=== PATIENT | male | born 1945 | race Caucasian/White ===

== ENCOUNTER 2023-07-06 09:01 | Outpatient (CLI) | payer MEDICARE, OTHER ==
[2023-07-06] MEDS ORDERED: Magnevist 469MG/ML 20 ML VIAL ONE (14:03)
== END 2023-07-06 09:02 | disposition home or self-care (01) ==
LOC: EEVIPCON 09:01 → BICMRI 09:01
PROVIDERS: ATTEND Internal Medicine Gastroenterology
DX: Q45.3 Other congenital malformations of pancreas and pancreatic duct (principal); M51.9 Unspecified thoracic, thoracolumbar and lumbosacral intervertebral disc disorder; C25.2 Malignant neoplasm of tail of pancreas; K86.89 Other specified diseases of pancreas; D13.9 Benign neoplasm of ill-defined sites within the digestive system; D13.6 Benign neoplasm of pancreas
CPT/HCPCS: 36415; 74183; 80053; 82565; 82728; 85025; 86301; A9579

== ENCOUNTER 2024-08-24 11:08 | Outpatient (CLI) | payer MEDICARE, OTHER | END 2024-08-24 11:09 | disposition home or self-care (01) | LOC: BICCT 11:08 | PROVIDERS: ATTEND Thoracic Surgery (Cardiothoracic Vascular Surgery) | DX: I72.8 Aneurysm of other specified arteries (principal); N28.1 Cyst of kidney, acquired; K57.30 Diverticulosis of large intestine without perforation or abscess without bleeding; K76.89 Other specified diseases of liver; Z90.81 Acquired absence of spleen; Z90.410 Acquired total absence of pancreas; Z90.411 Acquired partial absence of pancreas; Z96.642 Presence of left artificial hip joint | CPT/HCPCS: 36415; 74174; 82565 ==

== ENCOUNTER 2025-03-05 10:00 | Inpatient (IN) | payer MEDICARE, OTHER ==
[2025-03-05] MEDS ORDERED: cloNIDine 0.1 MG TAB PO PRN (11:48)
[2025-03-05] MEDS ORDERED: Nitroglycerin 0.4 MG TAB (25 Tab Bottle) SL PRN (11:49)
[2025-03-05] MEDS ORDERED: Ondansetron PF 4 MG/2 ML Vial IVP PRN (11:52)
[2025-03-05] MEDS ORDERED: Senokot S 8.6-50 MG TAB PO PRN (14:45)
[2025-03-05] MEDS ORDERED: Melatonin 3 MG TAB PO PRN (14:45)
[2025-03-05] MEDS ORDERED: Acetaminophen 325 MG TAB PO PRN (14:45)
[2025-03-06 04:39] LABS: #Basophils 0.06 10x3/uL (0.0-0.2); #Eosinophils 0.43 10x3/uL (0.0-0.7); #Monocytes 1.17 10x3/uL (0.11-0.59); #Neutrophils 5.16 10x3/uL (1.40-6.50); %Basophils 0.6 % (0.0-1.0); %Eosinophils 4.4 % (0.0-10.0); %Lymphocytes 29.8 % (21.0-51.0); %Monocytes 12.0 % (0.0-10.0); %Neutrophils 53.0 % (42.0-75.0); Hematocrit 39.2 % (42.0-52.0); Hemoglobin 13.0 g/dL (14.0-18.0); Mean Corpuscular Hemoglobin 31.0 pg (27.0-31.0); Mean Corpuscular Volume 93.3 fL (78.0-98.0); Platelet Count 211 10x3/uL (130-400); Red Blood Cell (RBC) Count 4.20 mill/uL (4.70-6.10); White Blood Cell (WBC) Count 9.74 10x3/uL (4.8-10.8)
[2025-03-06 04:55] LABS: Anion Gap 14 mmol/L (10-20); BUN (Urea Nitrogen) 22 mg/dL (8.4-25.7); Calc. Creatinine Clearance 83 mL/min (70-130); Calcium 9.1 mg/dL (7.8-10.44); Carbon Dioxide 26 mmol/L (23-31); Chloride 104 mmol/L (98-107); Glucose 97 mg/dL (83-110); Potassium 3.9 mmol/L (3.5-5.1); Sodium 140 mmol/L (136-145)
[2025-03-06] MEDS ORDERED: Enoxaparin 40 MG (0.4 mL) SYRINGE SC SCH (09:00)
[2025-03-06] MEDS: Bisacodyl 10 MG SUPP PR PRN (19:58)
[2025-03-07 04:33] LABS: #Basophils 0.07 10x3/uL (0.0-0.2); #Eosinophils 0.48 10x3/uL (0.0-0.7); #Monocytes 1.24 10x3/uL (0.11-0.59); #Neutrophils 4.72 10x3/uL (1.40-6.50); %Basophils 0.7 % (0.0-1.0); %Eosinophils 5.1 % (0.0-10.0); %Lymphocytes 30.2 % (21.0-51.0); %Monocytes 13.2 % (0.0-10.0); %Neutrophils 50.4 % (42.0-75.0); Hematocrit 39.6 % (42.0-52.0); Hemoglobin 12.9 g/dL (14.0-18.0); Mean Corpuscular Hemoglobin 30.3 pg (27.0-31.0); Mean Corpuscular Volume 93.0 fL (78.0-98.0); Platelet Count 211 10x3/uL (130-400); Red Blood Cell (RBC) Count 4.26 mill/uL (4.70-6.10); White Blood Cell (WBC) Count 9.38 10x3/uL (4.8-10.8)
[2025-03-07 04:48] LABS: Anion Gap 11 mmol/L (10-20); BUN (Urea Nitrogen) 18 mg/dL (8.4-25.7); Calc. Creatinine Clearance 96 mL/min (70-130); Calcium 9.2 mg/dL (7.8-10.44); Carbon Dioxide 28 mmol/L (23-31); Chloride 104 mmol/L (98-107); Glucose 100 mg/dL (83-110); Potassium 3.8 mmol/L (3.5-5.1); Sodium 139 mmol/L (136-145)
[2025-03-07] MEDS ORDERED: Communication Order-Pharmacy FS SCH (06:00)
[2025-03-07] MEDS ORDERED: Heparin 10,000 UNITS/1 ML VIAL 30,000 UNITS in Sodium Chloride 0.9% 1,000 ML FS SCH (06:45)
[2025-03-07] MEDS ORDERED: Thrombin 5000 UNITS/5 ML VIAL ONE ×2 (07:41→09:48)
[2025-03-07] MEDS ORDERED: PHENYLEPHRINE-NS 100 MCG/ML 10 ML SYRINGE ONE ×3 (07:41→15:14)
[2025-03-07] MEDS ORDERED: Ezetimibe 10 MG TAB PO SCH (09:00)
[2025-03-07] MEDS ORDERED: PROPOFOL 20 ML ONE (09:13)
[2025-03-07] MEDS ORDERED: Heparin 5,000 UNITS/ML VIAL ONE (09:48)
[2025-03-07] MEDS ORDERED: Calcium Chloride 1 GM/10 ML Abboject SYRINGE ONE (09:48)
[2025-03-07] MEDS ORDERED: Heparin 30,000 units/30 ml VIAL ONE (09:48)
[2025-03-07] MEDS ORDERED: Cardioplegic Soln 1,000 ML BAG ONE (09:48)
[2025-03-07] MEDS ORDERED: Glycopyrrolate 0.2 MG/ML 5 ML SYRINGE ONE (10:51)
[2025-03-07] MEDS ORDERED: Lidocaine 1% PF 5 ML VIAL ONE ×2 (11:16→12:58)
[2025-03-07] MEDS ORDERED: Lidocaine 2% PF 100 mg/5 ml Syringe ONE (12:04)
[2025-03-07] MEDS ORDERED: Milrinone 10 MG/10 ML VIAL ONE (12:45)
[2025-03-07] MEDS ORDERED: hydrALAZINE 20 MG/ML VIAL SLOW IVP PRN (15:37)
[2025-03-07] MEDS ORDERED: Albumin 5% 12.5 GM (250 mL) BOT IVPB PRN (15:37)
[2025-03-07] MEDS ORDERED: Ventilator Sedation Protocol 1 EACH FS SCH (15:37)
[2025-03-07] MEDS ORDERED: niCARdipine 25 MG in Sodium Chloride 0.9% 250 ML 250 ML IVPB PRN (15:37)
[2025-03-07] MEDS ORDERED: Acetaminophen 325 MG TAB PO PRN (15:37)
[2025-03-07] MEDS ORDERED: Hetastarch 6% 500 ML 500 ML IVPB PRN (15:37)
[2025-03-07] MEDS ORDERED: Ondansetron PF 4 MG/2 ML Vial IVP PRN (15:37)
[2025-03-07 15:40] LABS: Actual Bicarbonate (HCO3a) 22.1 mEq/L (22-28); Base Excess (BEa) -2.8 mEq/L (-2.0 to +3.0); CO2 Tension 39.1 mmHg (35.0-45.0); Calcium, Ionized (arterial) 1.15 mmol/L (1.12-1.30); Hematocrit-ABG 28 % (42.0-52.0); Hemoglobin (Hb) 9.6 g/dL (14.0-18.0); O2 Tension (PaO2), arterial 213.1 mmHg (> 70.0); Potassium - ABG Lab 3.53 mmol/L (3.70-5.30); pH, Arterial 7.371 (7.35-7.45)
[2025-03-07 15:42] LABS: ALV-art Gradient 165.825 mmHg (0-20); Puncture Site Arterial Line
[2025-03-07] MEDS ORDERED: Glucagon 1 MG/ML KIT SC PRN (15:45)
[2025-03-07] MEDS ORDERED: Dextrose 50% Abboject 50 ML SYRINGE SLOW IVP PRN (15:45)
[2025-03-07] MEDS ORDERED: DISCONTINUE PREVIOUS NARCOTIC PAIN MEDICATIONS AND BENZODIAZEPINES FS SCH (16:00)
[2025-03-07] MEDS ORDERED: Fentanyl BOLUS 100 ML IVPB PRN (16:00)
[2025-03-07] MEDS ORDERED: Propofol BOLUS 1,000 MG/100 ML VIAL IV PRN (16:00)
[2025-03-07 16:06] LABS: #Basophils 0.04 10x3/uL (0.0-0.2); #Eosinophils 0.08 10x3/uL (0.0-0.7); #Monocytes 2.70 10x3/uL (0.11-0.59); #Neutrophils 15.25 10x3/uL (1.40-6.50); %Basophils 0.2 % (0.0-1.0); %Eosinophils 0.4 % (0.0-10.0); %Lymphocytes 15.5 % (21.0-51.0); %Monocytes 12.5 % (0.0-10.0); %Neutrophils 70.3 % (42.0-75.0); Hematocrit 26.5 % (42.0-52.0); Hemoglobin 8.7 g/dL (14.0-18.0); Mean Corpuscular Hemoglobin 31.4 pg (27.0-31.0); Mean Corpuscular Volume 95.7 fL (78.0-98.0); Platelet Count 151 10x3/uL (130-400); Red Blood Cell (RBC) Count 2.77 mill/uL (4.70-6.10); White Blood Cell (WBC) Count 21.65 10x3/uL (4.8-10.8)
[2025-03-07 16:11] LABS: INR-International Normal Ratio 1.3; Prothrombin Time 16.4 sec (12.0-14.7)
[2025-03-07 16:12] LABS: PTT 33.2 sec (22.9-36.1)
[2025-03-07 16:20] LABS: Anion Gap 16 mmol/L (10-20); BUN (Urea Nitrogen) 14 mg/dL (8.4-25.7); Calc. Creatinine Clearance 94 mL/min (70-130); Calcium 8.0 mg/dL (7.8-10.44); Carbon Dioxide 19 mmol/L (23-31); Chloride 112 mmol/L (98-107); Glucose 148 mg/dL (83-110); Potassium 3.6 mmol/L (3.5-5.1); Sodium 143 mmol/L (136-145)
[2025-03-07] MEDS: Magnesium 2 GM/50 ML(in water) 2 GM in Premix 1 BAG IVPB SCH ×2 (16:31→17:35)
[2025-03-07] MEDS: D5 1/2 NS w/20 mEq KCL 1,000 ML IV SCH (16:31)
[2025-03-07] MEDS: Nitroglycerin 50 MG/250 ML BOT 250 ML IVPB PRN (17:32)
[2025-03-07] MEDS: Albumin 5% 12.5 GM (250 mL) BOT IVPB PRN (17:32)
[2025-03-07] MEDS: NOREPINEPHRINE 8 MG/250 ML-D5W 250 ML IVPB PRN (17:33)
[2025-03-07] MEDS: Potassium Chloride 20 MEQ (100 mL) BAG IVPB PRN (18:49)
[2025-03-07] MEDS: Nitroglycerin 50 MG/250 ML BOT 250 ML ONE (19:03)
[2025-03-07] MEDS: INSULIN REGULAR IN 0.9 % NACL 100 UNITS in Premix 1 BAG IVPB SCH (20:13)
[2025-03-07] MEDS: Famotidine/PF 20 mg/2ml Vial SLOW IVP SCH (21:23)
[2025-03-07 21:56] LABS: Actual Bicarbonate (HCO3a) 22.5 mEq/L (22-28); Base Excess (BEa) -1.9 mEq/L (-2.0 to +3.0); CO2 Tension 36.1 mmHg (35.0-45.0); Calcium, Ionized (arterial) 1.12 mmol/L (1.12-1.30); Hematocrit-ABG 19 % (42.0-52.0); Hemoglobin (Hb) 6.6 g/dL (14.0-18.0); O2 Tension (PaO2), arterial 149.9 mmHg (> 70.0); Potassium - ABG Lab 4.41 mmol/L (3.70-5.30); pH, Arterial 7.412 (7.35-7.45)
[2025-03-07 21:58] LABS: ALV-art Gradient 90.175 mmHg (0-20); Puncture Site Arterial Line
[2025-03-07 23:42] LABS: Actual Bicarbonate (HCO3a) 20.2 mEq/L (22-28); Base Excess (BEa) -3.9 mEq/L (-2.0 to +3.0); CO2 Tension 32.8 mmHg (35.0-45.0); Calcium, Ionized (arterial) 1.14 mmol/L (1.12-1.30); Hematocrit-ABG 25 % (42.0-52.0); Hemoglobin (Hb) 8.6 g/dL (14.0-18.0); O2 Tension (PaO2), arterial 147.7 mmHg (> 70.0); Potassium - ABG Lab 4.17 mmol/L (3.70-5.30); pH, Arterial 7.407 (7.35-7.45)
[2025-03-07 23:43] LABS: Puncture Site Arterial Line
[2025-03-07 23:44] LABS: ALV-art Gradient 96.500 mmHg (0-20)
[2025-03-08 03:37] LABS: #Basophils Less than 0.03 10x3/uL (0.0-0.2); #Eosinophils Less than 0.03 10x3/uL (0.0-0.7); #Monocytes 2.07 10x3/uL (0.11-0.59); #Neutrophils 8.40 10x3/uL (1.40-6.50); %Basophils 0.2 % (0.0-1.0); %Eosinophils 0.0 % (0.0-10.0); %Lymphocytes 12.7 % (21.0-51.0); %Monocytes 17.1 % (0.0-10.0); %Neutrophils 69.5 % (42.0-75.0); Hematocrit 26.5 % (42.0-52.0); Hemoglobin 8.8 g/dL (14.0-18.0); Mean Corpuscular Hemoglobin 30.3 pg (27.0-31.0); Mean Corpuscular Volume 91.4 fL (78.0-98.0); Platelet Count 205 10x3/uL (130-400); Red Blood Cell (RBC) Count 2.90 mill/uL (4.70-6.10); White Blood Cell (WBC) Count 12.08 10x3/uL (4.8-10.8)
[2025-03-08 03:49] LABS: Anion Gap 12 mmol/L (10-20); BUN (Urea Nitrogen) 16 mg/dL (8.4-25.7); Calc. Creatinine Clearance 90 mL/min (70-130); Calcium 8.1 mg/dL (7.8-10.44); Carbon Dioxide 24 mmol/L (23-31); Chloride 111 mmol/L (98-107); Glucose 118 mg/dL (83-110); Potassium 4.5 mmol/L (3.5-5.1); Sodium 142 mmol/L (136-145)
[2025-03-08 05:01] LABS: Actual Bicarbonate (HCO3a) 20.5 mEq/L (22-28); Base Excess (BEa) -2.1 mEq/L (-2.0 to +3.0); CO2 Tension 27.9 mmHg (35.0-45.0); Calcium, Ionized (arterial) 1.11 mmol/L (1.12-1.30); Hematocrit-ABG 28 % (42.0-52.0); Hemoglobin (Hb) 9.5 g/dL (14.0-18.0); O2 Tension (PaO2), arterial 147.8 mmHg (> 70.0); Potassium - ABG Lab 4.17 mmol/L (3.70-5.30); pH, Arterial 7.485 (7.35-7.45)
[2025-03-08 05:02] LABS: ALV-art Gradient 102.525 mmHg (0-20); Puncture Site Arterial Line
[2025-03-08 05:56] VITALS: BMI 22.6
[2025-03-08 07:00] LABS: Actual Bicarbonate (HCO3a) 22.8 mEq/L (22-28); Base Excess (BEa) -0.9 mEq/L (-2.0 to +3.0); CO2 Tension 33.9 mmHg (35.0-45.0); Calcium, Ionized (arterial) 1.12 mmol/L (1.12-1.30); Hematocrit-ABG 28 % (42.0-52.0); Hemoglobin (Hb) 9.4 g/dL (14.0-18.0); O2 Tension (PaO2), arterial 119.2 mmHg (> 70.0); Potassium - ABG Lab 4.14 mmol/L (3.70-5.30); pH, Arterial 7.445 (7.35-7.45)
[2025-03-08 07:02] LABS: ALV-art Gradient 123.625 mmHg (0-20); Puncture Site Arterial Line
[2025-03-08 12:11] LABS: #Basophils Less than 0.03 10x3/uL (0.0-0.2); #Eosinophils Less than 0.03 10x3/uL (0.0-0.7); #Monocytes 2.37 10x3/uL (0.11-0.59); #Neutrophils 11.80 10x3/uL (1.40-6.50); %Basophils 0.1 % (0.0-1.0); %Eosinophils 0.0 % (0.0-10.0); %Lymphocytes 8.8 % (21.0-51.0); %Monocytes 15.2 % (0.0-10.0); %Neutrophils 75.6 % (42.0-75.0); Hematocrit 25.4 % (42.0-52.0); Hemoglobin 8.5 g/dL (14.0-18.0); Mean Corpuscular Hemoglobin 30.1 pg (27.0-31.0); Mean Corpuscular Volume 90.1 fL (78.0-98.0); Platelet Count 202 10x3/uL (130-400); Red Blood Cell (RBC) Count 2.82 mill/uL (4.70-6.10); White Blood Cell (WBC) Count 15.61 10x3/uL (4.8-10.8)
[2025-03-08 12:40] LABS: Anion Gap 11 mmol/L (10-20); BUN (Urea Nitrogen) 19 mg/dL (8.4-25.7); Calc. Creatinine Clearance 74 mL/min (70-130); Calcium 8.2 mg/dL (7.8-10.44); Carbon Dioxide 25 mmol/L (23-31); Chloride 110 mmol/L (98-107); Glucose 158 mg/dL (83-110); Potassium 4.2 mmol/L (3.5-5.1); Sodium 142 mmol/L (136-145)
[2025-03-09 02:50] LABS: #Basophils 0.04 10x3/uL (0.0-0.2); #Eosinophils Less than 0.03 10x3/uL (0.0-0.7); #Monocytes 2.75 10x3/uL (0.11-0.59); #Neutrophils 12.69 10x3/uL (1.40-6.50); %Basophils 0.2 % (0.0-1.0); %Eosinophils 0.0 % (0.0-10.0); %Lymphocytes 9.7 % (21.0-51.0); %Monocytes 16.0 % (0.0-10.0); %Neutrophils 73.7 % (42.0-75.0); Hematocrit 24.0 % (42.0-52.0); Hemoglobin 8.0 g/dL (14.0-18.0); Mean Corpuscular Hemoglobin 30.7 pg (27.0-31.0); Mean Corpuscular Volume 92.0 fL (78.0-98.0); Platelet Count 184 10x3/uL (130-400); Red Blood Cell (RBC) Count 2.61 mill/uL (4.70-6.10); White Blood Cell (WBC) Count 17.22 10x3/uL (4.8-10.8)
[2025-03-09 03:23] LABS: Anion Gap 12 mmol/L (10-20); BUN (Urea Nitrogen) 25 mg/dL (8.4-25.7); Calc. Creatinine Clearance 88 mL/min (70-130); Calcium 8.3 mg/dL (7.8-10.44); Carbon Dioxide 25 mmol/L (23-31); Chloride 109 mmol/L (98-107); Glucose 166 mg/dL (83-110); Potassium 4.2 mmol/L (3.5-5.1); Sodium 142 mmol/L (136-145)
[2025-03-09] MEDS: D5 1/2 NS w/20 mEq KCL 1,000 ML IV SCH (08:21)
[2025-03-09] MEDS: Aspirin 81 mg Enteric Coated Tablet PO SCH (10:30)
[2025-03-10 04:14] LABS: Hematocrit 23.3 % (42.0-52.0); Hemoglobin 7.6 g/dL (14.0-18.0); Mean Corpuscular Hemoglobin 30.9 pg (27.0-31.0); Mean Corpuscular Volume 94.7 fL (78.0-98.0); Platelet Count 166 10x3/uL (130-400); Red Blood Cell (RBC) Count 2.46 mill/uL (4.70-6.10); White Blood Cell (WBC) Count 10.46 10x3/uL (4.8-10.8)
[2025-03-10 04:30] LABS: Anion Gap 10 mmol/L (10-20); BUN (Urea Nitrogen) 23 mg/dL (8.4-25.7); Calc. Creatinine Clearance 120 mL/min (70-130); Calcium 8.2 mg/dL (7.8-10.44); Carbon Dioxide 27 mmol/L (23-31); Chloride 109 mmol/L (98-107); Glucose 140 mg/dL (83-110); Potassium 4.0 mmol/L (3.5-5.1); Sodium 142 mmol/L (136-145)
[2025-03-10 05:14] LABS: Nucleated RBC (Manual Ct) 1 % (0); Platelet Adequacy Comment Platelets Normal; Polychromasia SLIGHT = 2-3 cells HPF (0-2); Smudge Cells 5.8 %
[2025-03-10] MEDS: Amiodarone 150 MG, Admixture Fee 1 EACH in Dextrose 5% in Water 100 ML IVPB SCH (08:57)
[2025-03-10 09:15] LABS: INR-International Normal Ratio 1.2; Prothrombin Time 15.4 sec (12.0-14.7)
[2025-03-10 09:16] LABS: Hematocrit 23.3 % (42.0-52.0); Hemoglobin 7.6 g/dL (14.0-18.0); Mean Corpuscular Hemoglobin 30.6 pg (27.0-31.0); Mean Corpuscular Volume 94.0 fL (78.0-98.0); PTT 31.3 sec (22.9-36.1); Platelet Count 163 10x3/uL (130-400); Red Blood Cell (RBC) Count 2.48 mill/uL (4.70-6.10); White Blood Cell (WBC) Count 9.61 10x3/uL (4.8-10.8)
[2025-03-10 09:24] LABS: Anion Gap 13 mmol/L (10-20); BUN (Urea Nitrogen) 24 mg/dL (8.4-25.7); Calc. Creatinine Clearance 126 mL/min (70-130); Calcium 8.2 mg/dL (7.8-10.44); Carbon Dioxide 23 mmol/L (23-31); Chloride 110 mmol/L (98-107); Glucose 149 mg/dL (83-110); Potassium 4.0 mmol/L (3.5-5.1); Sodium 142 mmol/L (136-145)
[2025-03-10] MEDS: DOBUTamine 500 mg/250 ml 0 ML ONE (09:26)
[2025-03-10 09:37] LABS: Burr Cells MODERATE= 6-15 cells HPF (0-1); Platelet Adequacy Comment Platelets Normal; Polychromasia SLIGHT = 2-3 cells HPF (0-2)
[2025-03-10 12:27] LABS: Hematocrit 24.4 % (42.0-52.0); Hemoglobin 8.2 g/dL (14.0-18.0); Platelet Count 159 10x3/uL (130-400)
[2025-03-10] MEDS: Albumin 5% 12.5 GM (250 mL) BOT IVPB SCH (12:41)
[2025-03-11 03:53] LABS: #Basophils Less than 0.03 10x3/uL (0.0-0.2); #Eosinophils 0.21 10x3/uL (0.0-0.7); #Monocytes 1.68 10x3/uL (0.11-0.59); #Neutrophils 5.38 10x3/uL (1.40-6.50); %Basophils 0.2 % (0.0-1.0); %Eosinophils 2.4 % (0.0-10.0); %Lymphocytes 14.9 % (21.0-51.0); %Monocytes 19.5 % (0.0-10.0); %Neutrophils 62.5 % (42.0-75.0); Hematocrit 24.8 % (42.0-52.0); Hemoglobin 8.0 g/dL (14.0-18.0); Mean Corpuscular Hemoglobin 30.7 pg (27.0-31.0); Mean Corpuscular Volume 95.0 fL (78.0-98.0); Platelet Count 177 10x3/uL (130-400); Red Blood Cell (RBC) Count 2.61 mill/uL (4.70-6.10); White Blood Cell (WBC) Count 8.61 10x3/uL (4.8-10.8)
[2025-03-11 04:15] LABS: Anion Gap 8 mmol/L (10-20); BUN (Urea Nitrogen) 18 mg/dL (8.4-25.7); Calc. Creatinine Clearance 124 mL/min (70-130); Calcium 8.1 mg/dL (7.8-10.44); Carbon Dioxide 26 mmol/L (23-31); Chloride 111 mmol/L (98-107); Glucose 126 mg/dL (83-110); Potassium 3.8 mmol/L (3.5-5.1); Sodium 141 mmol/L (136-145)
[2025-03-11] MEDS ORDERED: niCARdipine 25 MG in Sodium Chloride 0.9% 250 ML 250 ML IVPB SCH (11:30)
[2025-03-11 11:33] LABS: #Basophils Less than 0.03 10x3/uL (0.0-0.2); #Eosinophils 0.19 10x3/uL (0.0-0.7); #Monocytes 1.71 10x3/uL (0.11-0.59); #Neutrophils 6.83 10x3/uL (1.40-6.50); %Basophils 0.2 % (0.0-1.0); %Eosinophils 1.8 % (0.0-10.0); %Lymphocytes 16.7 % (21.0-51.0); %Monocytes 16.2 % (0.0-10.0); %Neutrophils 64.6 % (42.0-75.0); Hematocrit 25.8 % (42.0-52.0); Hemoglobin 8.3 g/dL (14.0-18.0); Mean Corpuscular Hemoglobin 30.6 pg (27.0-31.0); Mean Corpuscular Volume 95.2 fL (78.0-98.0); Platelet Count 186 10x3/uL (130-400); Red Blood Cell (RBC) Count 2.71 mill/uL (4.70-6.10); White Blood Cell (WBC) Count 10.57 10x3/uL (4.8-10.8)
[2025-03-11] MEDS: niCARdipine 25 MG in Sodium Chloride 0.9% 250 ML 250 ML IVPB SCH (11:46)
[2025-03-11 11:52] LABS: INR-International Normal Ratio 1.1; Prothrombin Time 14.5 sec (12.0-14.7)
[2025-03-11 11:53] LABS: PTT 32.4 sec (22.9-36.1)
[2025-03-11] MEDS: ALPRAZolam 0.25 MG TAB PO SCH ×2 (13:53→20:13)
[2025-03-12 04:20] LABS: #Basophils 0.04 10x3/uL (0.0-0.2); #Eosinophils 0.42 10x3/uL (0.0-0.7); #Monocytes 1.48 10x3/uL (0.11-0.59); #Neutrophils 7.06 10x3/uL (1.40-6.50); %Basophils 0.4 % (0.0-1.0); %Eosinophils 4.0 % (0.0-10.0); %Lymphocytes 13.4 % (21.0-51.0); %Monocytes 14.1 % (0.0-10.0); %Neutrophils 67.1 % (42.0-75.0); Hematocrit 25.2 % (42.0-52.0); Hemoglobin 8.1 g/dL (14.0-18.0); Mean Corpuscular Hemoglobin 30.6 pg (27.0-31.0); Mean Corpuscular Volume 95.1 fL (78.0-98.0); Platelet Count 200 10x3/uL (130-400); Red Blood Cell (RBC) Count 2.65 mill/uL (4.70-6.10); White Blood Cell (WBC) Count 10.51 10x3/uL (4.8-10.8)
[2025-03-12 04:57] LABS: Anion Gap 8 mmol/L (10-20); BUN (Urea Nitrogen) 14 mg/dL (8.4-25.7); Calc. Creatinine Clearance 137 mL/min (70-130); Calcium 8.1 mg/dL (7.8-10.44); Carbon Dioxide 27 mmol/L (23-31); Chloride 107 mmol/L (98-107); Glucose 109 mg/dL (83-110); Potassium 3.3 mmol/L (3.5-5.1); Sodium 139 mmol/L (136-145)
[2025-03-12] MEDS: Furosemide 40 MG (4 mL) VIAL SLOW IVP SCH (11:46)
[2025-03-12] MEDS: Famotidine 20 MG TAB PO SCH (21:26)
[2025-03-13] MEDS: Albumin 25% 25 GM (100 mL) BOT IVPB SCH (02:36)
[2025-03-13 05:09] LABS: #Basophils Less than 0.03 10x3/uL (0.0-0.2); #Eosinophils 0.68 10x3/uL (0.0-0.7); #Monocytes 1.85 10x3/uL (0.11-0.59); #Neutrophils 8.49 10x3/uL (1.40-6.50); %Basophils 0.2 % (0.0-1.0); %Eosinophils 5.2 % (0.0-10.0); %Lymphocytes 14.5 % (21.0-51.0); %Monocytes 14.0 % (0.0-10.0); %Neutrophils 64.3 % (42.0-75.0); Hematocrit 24.9 % (42.0-52.0); Hemoglobin 8.0 g/dL (14.0-18.0); Mean Corpuscular Hemoglobin 30.4 pg (27.0-31.0); Mean Corpuscular Volume 94.7 fL (78.0-98.0); Platelet Count 219 10x3/uL (130-400); Red Blood Cell (RBC) Count 2.63 mill/uL (4.70-6.10); White Blood Cell (WBC) Count 13.19 10x3/uL (4.8-10.8)
[2025-03-13 05:32] LABS: Anion Gap 10 mmol/L (10-20); BUN (Urea Nitrogen) 17 mg/dL (8.4-25.7); Calc. Creatinine Clearance 99 mL/min (70-130); Calcium 8.3 mg/dL (7.8-10.44); Carbon Dioxide 28 mmol/L (23-31); Chloride 103 mmol/L (98-107); Glucose 128 mg/dL (83-110); Potassium 3.1 mmol/L (3.5-5.1); Sodium 138 mmol/L (136-145)
[2025-03-13] MEDS: Amiodarone 200 MG TAB PO SCH (08:50)
[2025-03-13] MEDS: Guaifenesin DM 100-10/5 ML UDCUP PO PRN (15:21)
[2025-03-14 07:14] LABS: #Basophils 0.03 10x3/uL (0.0-0.2); #Eosinophils 0.87 10x3/uL (0.0-0.7); #Monocytes 1.99 10x3/uL (0.11-0.59); #Neutrophils 7.72 10x3/uL (1.40-6.50); %Basophils 0.2 % (0.0-1.0); %Eosinophils 6.4 % (0.0-10.0); %Lymphocytes 19.1 % (21.0-51.0); %Monocytes 14.7 % (0.0-10.0); %Neutrophils 57.0 % (42.0-75.0); Hematocrit 26.7 % (42.0-52.0); Hemoglobin 8.6 g/dL (14.0-18.0); Mean Corpuscular Hemoglobin 30.7 pg (27.0-31.0); Mean Corpuscular Volume 95.4 fL (78.0-98.0); Platelet Count 264 10x3/uL (130-400); Red Blood Cell (RBC) Count 2.80 mill/uL (4.70-6.10); White Blood Cell (WBC) Count 13.55 10x3/uL (4.8-10.8)
[2025-03-14] MEDS: Bisacodyl 10 MG SUPP PR PRN (07:35)
[2025-03-14 08:04] LABS: Calcium 8.4 mg/dL (7.8-10.44); Glucose 112 mg/dL (83-110)
[2025-03-14 08:05] LABS: Anion Gap 11 mmol/L (10-20); BUN (Urea Nitrogen) 13 mg/dL (8.4-25.7); Calc. Creatinine Clearance 102 mL/min (70-130); Carbon Dioxide 27 mmol/L (23-31)
[2025-03-14 08:07] LABS: Chloride 104 mmol/L (98-107); Potassium 3.3 mmol/L (3.5-5.1); Sodium 139 mmol/L (136-145)
[2025-03-14] MEDS: Mag-Al 1200 mg/1200 mg/30 ML UDCUP PO PRN (11:51)
[2025-03-14] MEDS: Simethicone Chewable 80 MG TAB PO PRN (15:53)
[2025-03-15 03:36] LABS: #Basophils 0.03 10x3/uL (0.0-0.2); #Eosinophils 0.58 10x3/uL (0.0-0.7); #Monocytes 1.88 10x3/uL (0.11-0.59); #Neutrophils 13.76 10x3/uL (1.40-6.50); %Basophils 0.2 % (0.0-1.0); %Eosinophils 3.2 % (0.0-10.0); %Lymphocytes 9.0 % (21.0-51.0); %Monocytes 10.4 % (0.0-10.0); %Neutrophils 75.9 % (42.0-75.0); Hematocrit 26.8 % (42.0-52.0); Hemoglobin 8.5 g/dL (14.0-18.0); Mean Corpuscular Hemoglobin 30.5 pg (27.0-31.0); Mean Corpuscular Volume 96.1 fL (78.0-98.0); Platelet Count 294 10x3/uL (130-400); Red Blood Cell (RBC) Count 2.79 mill/uL (4.70-6.10); White Blood Cell (WBC) Count 18.11 10x3/uL (4.8-10.8)
[2025-03-15 03:52] LABS: Anion Gap 12 mmol/L (10-20); BUN (Urea Nitrogen) 17 mg/dL (8.4-25.7); Calc. Creatinine Clearance 110 mL/min (70-130); Calcium 8.3 mg/dL (7.8-10.44); Carbon Dioxide 29 mmol/L (23-31); Chloride 101 mmol/L (98-107); Glucose 125 mg/dL (83-110); Potassium 3.5 mmol/L (3.5-5.1); Sodium 138 mmol/L (136-145)
[2025-03-15] MEDS ORDERED: Simethicone Chewable 80 MG TAB PO PRN (08:50)
[2025-03-15] MEDS: Amiodarone 200 MG TAB PO SCH (09:05)
[2025-03-15 11:41] VITALS: BMI 21.3
[2025-03-15] MEDS ORDERED: Artificial Tear Ophth Sol 15 ML BOT EA EYE PRN (19:49)
[2025-03-15] MEDS ORDERED: diphenhydrAMINE 25 MG CAP PO PRN (19:49)
[2025-03-15] MEDS ORDERED: Mineral Oil ENEMA PR PRN (19:49)
[2025-03-15] MEDS ORDERED: Milk Of Magnesia 30 ML UDCUP PO PRN (19:49)
[2025-03-16] MEDS: Ezetimibe 10 MG TAB PO SCH (07:59)
[2025-03-16] MEDS: Guaifenesin DM 100-10/5 ML UDCUP PO PRN (21:28)
[2025-03-17 15:50] VITALS: BP 124/73; TEMP 97.9
== END 2025-03-17 16:45 | disposition home health service (06) | DRG 235 ==
LOC: 2NO 10:59 → CCU 03-07 09:36 → PCU 03-15 16:17
PROVIDERS: ADMIT Internal Medicine Cardiovascular Disease; ATTEND Internal Medicine Cardiovascular Disease
PROC: 021009W Bypass Coronary Artery, One Artery from Aorta with Autologous Venous Tissue, Open Approach (ICD-10-PCS; principal; 2025-03-07)
PROC: 02100Z9 Bypass Coronary Artery, One Artery from Left Internal Mammary, Open Approach (ICD-10-PCS; 2025-03-07)
PROC: 06BQ4ZZ Excision of Left Saphenous Vein, Percutaneous Endoscopic Approach (ICD-10-PCS; 2025-03-07)
PROC: 02UX0JZ Supplement Thoracic Aorta, Ascending/Arch with Synthetic Substitute, Open Approach (ICD-10-PCS; 2025-03-07)
PROC: 02L70CK Occlusion of Left Atrial Appendage with Extraluminal Device, Open Approach (ICD-10-PCS; 2025-03-07)
PROC: 5A1221Z Performance of Cardiac Output, Continuous (ICD-10-PCS; 2025-03-07)
PROC: 3E080GC Introduction of Other Therapeutic Substance into Heart, Open Approach (ICD-10-PCS; 2025-03-07)
PROC: 30233L1 Transfusion of Nonautologous Fresh Plasma into Peripheral Vein, Percutaneous Approach (ICD-10-PCS; 2025-03-07)
PROC: 30233N1 Transfusion of Nonautologous Red Blood Cells into Peripheral Vein, Percutaneous Approach (ICD-10-PCS; 2025-03-07)
PROC: 30233R1 Transfusion of Nonautologous Platelets into Peripheral Vein, Percutaneous Approach (ICD-10-PCS; 2025-03-07)
PROC: 30233K1 Transfusion of Nonautologous Frozen Plasma into Peripheral Vein, Percutaneous Approach (ICD-10-PCS; 2025-03-07)
PROC: 4A133R1 Monitoring of Arterial Saturation, Peripheral, Percutaneous Approach (ICD-10-PCS; 2025-03-07)
PROC: 3E033XZ Introduction of Vasopressor into Peripheral Vein, Percutaneous Approach (ICD-10-PCS; 2025-03-07)
PROC: 3E043XZ Introduction of Vasopressor into Central Vein, Percutaneous Approach (ICD-10-PCS; 2025-03-07)
PROC: 30233J1 Transfusion of Nonautologous Serum Albumin into Peripheral Vein, Percutaneous Approach (ICD-10-PCS; 2025-03-07)
PROC: 3E03329 Introduction of Other Anti-infective into Peripheral Vein, Percutaneous Approach (ICD-10-PCS; 2025-03-07)
PROC: 3E04329 Introduction of Other Anti-infective into Central Vein, Percutaneous Approach (ICD-10-PCS; 2025-03-07)
PROC: 0T9B70Z Drainage of Bladder with Drainage Device, Via Natural or Artificial Opening (ICD-10-PCS; 2025-03-07)
PROC: 5A1935Z Respiratory Ventilation, Less than 24 Consecutive Hours (ICD-10-PCS; 2025-03-11)
DX: I25.10 Atherosclerotic heart disease of native coronary artery without angina pectoris (principal); I71.010 Dissection of ascending aorta; I97.51 Accidental puncture and laceration of a circulatory system organ or structure during a circulatory system procedure; D62 Acute posthemorrhagic anemia; I44.7 Left bundle-branch block, unspecified; G89.29 Other chronic pain; I48.91 Unspecified atrial fibrillation; M21.372 Foot drop, left foot; M54.2 Cervicalgia; E78.5 Hyperlipidemia, unspecified; I95.9 Hypotension, unspecified; K59.09 Other constipation; Y83.2 Surgical operation with anastomosis, bypass or graft as the cause of abnormal reaction of the patient, or of later complication, without mention of misadventure at the time of the procedure; Y71.3 Surgical instruments, materials and cardiovascular devices (including sutures) associated with adverse incidents; Z98.890 Other specified postprocedural states; Z90.81 Acquired absence of spleen; Z87.01 Personal history of pneumonia (recurrent); Z90.410 Acquired total absence of pancreas; Z79.891 Long term (current) use of opiate analgesic; Z85.3 Personal history of malignant neoplasm of breast; Z79.899 Other long term (current) drug therapy; Z79.82 Long term (current) use of aspirin
CPT/HCPCS: 36415; 36416; 36430; 71045; 80048; 82805; 85025; 85610; 85730; 86850; 86900; 86901; 93005; 93010; 93798; 94002; 94003; 94150; A4311; A4648; C1751; C1889; C2615; J0169; J0282; J0665; J1100; J1308; J1642; J1644; J1815; J1940; J2003; J2250; J2260; J2270; J2440; J2704; J3010; J3373; J3475; J3480; J7050; J7070; P9016; P9035; P9045; P9047; P9059; S0017